=== PATIENT | female | born 1955 | race Caucasian/White ===

== ENCOUNTER 2024-03-04 11:45 | Outpatient (CLI) | payer OTHER, SELFPAY ==
--- NOTE | ~2024-03-04 | XR_ITS ---
Right Knee Technique: AP, lateral, and sunrise views were obtained. Clinical History: Pain Findings: No fracture or dislocation is seen. Osseous alignment is anatomic. Joint spaces are preserv ed without degenerative or erosive change. There is focal soft tissue swelling or lump at the anterio r aspect of the knee, superficial to the patella/proximal patellar tendon. No joint effusion is seen. Impression: Focal soft tissue swelling or lump superficial to the inferior patellar pole and/or proximal patellar tendon. Correlate clinically. Consider ultrasound and/or MR to further evaluate. No osseous or articular abnormality otherwise. Reviewed, dictated and finalized at location . Impression: Focal soft tissue swelling or lump superficial to the inferior patellar pole an d/or proximal patellar tendon. Correlate clinically. Consider ultrasound and/or MR to further evaluate. No osseous or articular abnormality otherwise.
== END 2024-03-04 11:46 | disposition home or self-care (01) ==
PROVIDERS: PCP Nurse Practitioner; Visit Provider Orthopaedic Surgery
DX: M25.461 Effusion, right knee (principal)
CPT/HCPCS: 73564

== ENCOUNTER 2024-05-17 00:21 | Day surgery (SDC) | payer OTHER, SELFPAY ==
[2024-05-15 13:59] VITALS: BMI 25.0
--- NOTE | 2024-05-15 14:16 | PC.NURSE ---
Report to the Outpatient Waiting Room, entrance under the green pavilion located off [facility], at time __1:00PM on date ___05/17/24____. Planned Procedure Time: __3:00PM . Time changes happen often and if your time is changed the preop area will call you the afternoon before. - You and your visitor will be asked to self-screen and do not enter if you have any COVID symptoms. - A mask is optional within the hospital at this time. Patients may have clear liquids (water, carbonated beverages, clear teas, apple juice) until 3 hours prior to surgery with a maximum of 20 ounces. - No food from midnight until time of surgery. Take the following medications with a SIP of water the morning of surgery: ___PROPRANOLOL DO NOT STOP ANY OF YOUR OTHER PRESCRIPTION MEDICATIONS PRIOR TO SURGERY ?EXCEPT THE FOLLOWING Medications to discontinue per physician ____HOLD ALL VITAMINS/SUPPLEMENTS 3 DAYS PRE-OP PER ANESTHESIA-STARTING NOW-05/15/24.___ Please no make-up, nail kinyarwanda, hairspray, perfume, deodorant, or body powder the day of surgery. No jewelry (including any body piercings) or valuables the day of surgery, leave them at home. Please take a shower or bath the night before, or the morning of, surgery with an antibacterial soap. Wear comfortable, loose fitting clothing. - Jewelry must be removed prior to entering the operating room. Rings and piercings that are not removed may be cut off. - The hospital will not accept responsibility for valuables. - Please leave all valuables, including medications, at home the day of surgery. If you are going home after surgery, a licensed tow motor driver must drive you home. - NO public transportation without another adult if you receive anesthesia. - We recommend that an adult stay with you for 24 hours following discharge. - We also recommend that you do not drive, make important decision, drink alcoholic beverages, or take any drugs that were not prescribed by your health care provider for at least 24 hours after your discharge time. Follow any additional instructions given to you from your surgeon. If you or anyone in your household have experienced Covid symptoms in the past week, please notify your surgeon or the nurse liaison at the phone number below for possible testing. Telephone instructions given to ___PATIENT and asked if any additional questions and then verbalized understanding. Patient advised to call surgeon office or pre surgery nurse liaison [phone] if any additional questions.
[2024-05-17] VITALS (9 sets, daily range): BP systolic 86–124; BP diastolic 60–78; PULSE 51–69; RESP 12–16; TEMP 36.3–36.7; O2SAT 99–100
[2024-05-17] MEDS: ACETAMINOPHEN 500 MG TABLET 1000 MG PO (13:20)
[2024-05-17] MEDS: LACTATED RINGERS 1,000 ML 30 ML IV CONT ×2 (13:30→15:58)
[2024-05-17] MEDS: KETOROLAC 15 MG/ML VIAL (*BKC) IV PUSH (14:04)
--- NOTE | 2024-05-17 14:18 | WPDHPUPDATE1 ---
History and Physical Update Update Date/Time: 05/17/24 14:18 History and Physical has been reviewed, including an updated exam of the patient. There are NO changes in the patient's condition. Risks, benefits, and alternatives have been discussed and questions answered. Patient agrees to proceed with procedure.
--- NOTE | 2024-05-17 14:29 | WPDANESEPPF ---
Anes - Initial Pre Proc Eval Procedure: Operation Date: 05/17/24 15:00 Proposed Procedures p Right Knee Prepatellar Bursa Excision - Dayton Castellanos MD Date/Time: 05/17/24 14:29 Surgeon: Dayton Castellanos MD Pre Op Diagnosis: Pre-patellar Bursitis Rt Knee Patient Data Age: 68 Gender: F Height: 1.6 m Weight: 63.4 kg Last Vital Signs Temp 98.0 F 05/17/24 13:40 Pulse 57 L 05/17/24 13:40 Resp 16 05/17/24 13:40 BP 124/78 05/17/24 13:40 Pulse Ox 100 05/17/24 13:40 O2 Del Method Room Air 05/17/24 13:40 Allergies Allergy/AdvReac Type Severity Reaction Status Date / Time No Known Allergies Allergy Verified 05/17/24 13:02 Home Medications Medication Instructions Recorded Confirmed Type Relaxium 1 tab-cap PO HS 05/15/24 05/17/24 History cholecalciferol (vitamin D3) 50 50 mcg PO DAILY 05/15/24 05/17/24 History mcg (2,000 unit) capsule propranolol 20 mg tablet 20 mg PO QAM 05/15/24 05/17/24 History Patient hx anesthesia problems: none Family hx anesthesia problems: none Results Review: All pre-operative results and documents have been reviewed as part of the pre-operative evaluation. [facility] Past Medical History Medical History History of postoperative nausea and vomiting Surgical History Surgical History History of 3 sections History of colectomy Social History Social History Smoking status: Never smoker Alcohol intake: current Drinks per week: 3 Substance use: never Substance use type: does not use Do You Feel Safe in your Home?: Yes Lack of Transportation: No Lack of Food: Never True Current Housing: I Have Housing Concerned About Future Housing: No Difficulty Paying Gas/Electric Bills: No Difficulty Paying for Meds: No Currently Unemployed: No Education: Bachelor's Degree Difficulty w/ Childcare or Family Care: No Living arrangements: with family Additional living arrangements comments: HUSB Spiritual care concerns: No Anes - Eval Final PreProcedure Day of Procedure 05/17/24 14:29 Patient weight: normal Heart: regular rate and rhythm Lungs: clear to auscultation Airway: Mallampati scale class II Neurological: alert and oriented Last oral intake: >/= 8 hours ASA classification: II Emergent: no Anesthetic plan: proceed Anesthesia type and monitoring: general LMA and standard monitoring Results Review: All pre-operative results and documents have been reviewed as part of the pre-operative evaluation. Pt w essential tremors, on chronic b alex. Informed Consent: The patient's anesthetic plan and its attendant risks and benefits were discussed with the patient/family/POA. Questions were solicited and answers provided to the satisfaction of the patient/family/POA.
[2024-05-17] MEDS: ceFAZolin 2 GM/D5W 50 ML 2 GM/50 ML BAG IVPB (14:39)
[2024-05-17] MEDS: BUPIVACAINE/EPINEPHRINE 0.5% 10 ML VIAL 20 ML INFILTRATE (15:04)
--- NOTE | 2024-05-17 16:02 | W.PM.PROC2 ---
Procedure Note - Detailed Date of Procedure 05/17/24 Pre-op Diagnosis Prepatellar bursitis with cyst, right knee. Post-op Diagnosis Same Procedure Performed Right knee prepatellar bursa cyst excision Surgeon Dayton Castellanos MD Anesthesia General Findings Benign cystic mass. 2-3 cm diameter. Primary wound closure. Description of Procedure Preoperative antibiotics were given. The knee was prepped and draped in the usual sterile fashion. The limb was exsanguinated and the tourniquet inflated to 300 mmHg. A transverse incision was centered over the cystic mass. 5 mL of 0.5% Marcaine with epinephrine was injected for perioperative pain control. Careful dissection was brought down around the cyst using the Metzenbaum scissors. The cystic fluid was excised. The tissue appeared benign. No signs of infection. The entire cyst capsule was removed. The remaining tissue appeared healthy. The tourniquet was released. Meticulous hemostasis maintained. The wound closed in layers with interrupted 3-0 Monocryl suture followed by running 4-0 Monocryl suture. Steri-Strips placed on the skin. Silver impregnated sterile bandage secured. Padded dressing, with Abelardo wrap. Patient extubated and brought to the recovery room in stable condition. Estimated Blood Loss 1 Drains No Packing No Pathology None sent Complications No immediate complications Condition Stable Disposition PACU [facility] Billing Surgery - Charge Forward: Surgery Billing
== END 2024-05-17 17:20 | disposition home or self-care (01) ==
PROVIDERS: PCP Nurse Practitioner; Visit Provider Orthopaedic Surgery
PROC: (CPT 27340; principal; 2024-05-17 15:00)
DX: M70.41 Prepatellar bursitis, right knee (principal); Z98.890 Other specified postprocedural states; Z90.49 Acquired absence of other specified parts of digestive tract
CPT/HCPCS: 27340; A9270; J0690; J1100; J1885; J2250; J2405; J2704; J3010; J7120